=== PATIENT | female | born 1945 | race Caucasian/White ===

== ENCOUNTER 2018-04-17 17:56 | Emergency (ER) | payer MEDICARE, BC ==
[~2018-04-17] VITALS: Ht 162.6 cm; Wt 86.4 kg
[2018-04-17 18:07] VITALS: Ht 162.6 cm; Wt 86.4 kg
[2018-04-17] MEDS ORDERED: PRINIVIL20 MG PO (18:09)
[2018-04-17] MEDS ORDERED: ZOCOR20 MG PO (18:09)
[2018-04-17] MEDS ORDERED: TORADOL10 MG PO (20:28)
[2018-04-17 20:45] VITALS: BP 158/79
== END 2018-04-17 20:46 | disposition home or self-care (01) ==
LOC: D.ER 17:56
DX: N63.21 Unspecified lump in the left breast, upper outer quadrant (principal); I10 Essential (primary) hypertension

== ENCOUNTER 2018-04-22 08:00 | Outpatient (CLI) | payer MEDICARE, BC ==
[2018-04-17 18:07] VITALS: BMI 32.7
[~2018-04-22 08:00] MED LIST: PRINIVIL20 MG PO; TORADOL10 MG PO; ZOCOR20 MG PO
== END 2018-04-22 09:00 | disposition home or self-care (01) ==
LOC: D.MAMMO 08:00
DX: N63.22 Unspecified lump in the left breast, upper inner quadrant (principal)

== ENCOUNTER → 2018-05-12 08:19 | Outpatient (CLI) | payer MEDICARE, BC ==
[2018-04-17 18:07] VITALS: BMI 32.7
== END | disposition home or self-care (01) ==
LOC: D.US 08:19
DX: N63.22 Unspecified lump in the left breast, upper inner quadrant (principal)

== ENCOUNTER 2018-06-03 09:00 | Day surgery (SDC) | payer MEDICARE, BC ==
[2018-06-02 15:24] LABS: BASOPHILS 0.6 % (0-2); EOSINOPHILS 2.9 % (0-7); HEMATOCRIT 44.9 % (36.0-48.0); HEMOGLOBIN 14.7 g/dL (12-16); IMMATURE GRANULOCYTES 0.3 % (0-5); LYMPHOCYTES 19.2 % (15-50); MCH 31.1 pg (26.0-34.0); MCHC 32.7 g/dL (31.0-37.0); MCV 94.9 fL (80.0-100.0); MEAN PLATELET VOLUME 11.6 fL (7.4-10.4); MONOCYTES 7.2 % (2-11); NEUTROPHILS 69.8 % (40-80); PLATELET COUNT 188 10x3/uL (130-400); RBC 4.73 10x6/uL (4.00-5.40); RDW 12.8 % (11.5-14.5); WBC 9.6 10x3/uL (4.8-10.8)
[2018-06-02 15:45] LABS: ANION GAP 14.5 mmol/L (8-16); CALCIUM 9.5 mg/dL (8.5-10.1); CARBON DIOXIDE 29.1 mmol/L (21.0-32.0); CREATININE - SERUM 0.9 mg/dL (0.6-1.3); POTASSIUM - SERUM 4.6 mmol/L (3.5-5.1)
[~2018-06-03] VITALS: Ht 162.6 cm; Wt 89.4 kg
[2018-06-03 09:36] VITALS: BP 155/77; Ht 162.6 cm; Wt 89.4 kg
[2018-06-03 09:57] LABS: APTT 42.8 SECONDS (22.8-39.4); INR 0.99 (0.85-1.17); PROTIME 12.6 SECONDS (11.6-15.0)
[2018-06-03] MEDS ORDERED: HYDROCODON-ACE1 EA10 PO (13:28)
--- NOTE | 2018-06-03 14:41 | NUR ---
1415-RECD FROM [facility].
--- NOTE | 2018-06-03 15:24 | NUR ---
1515 [facility] 2L TURNED OFF
--- NOTE | 2018-06-03 15:24 | NUR ---
1515 DRESSING DRY AND INTACT
--- NOTE | 2018-06-03 16:30 | NUR ---
PATIENT FEELS DIZZY WHEN STANDING, CONTINUING TO SIP ON FLUIDS AND MONITOR SYMPTOMS
--- NOTE | 2018-06-03 17:15 | NUR ---
PATIENT STANDS AND STATES FEELS LESS DIZZY, FEELS STEADY, PATIENT AMBULATES WITHOUT ASSISTANCE TO BATHROOM AND ATTEMPTS TO VOID IN TOILET. NO URINE PRODUCED, PATIENT RETURNED TO BED
--- NOTE | 2018-06-03 19:15 | NUR ---
PATIENT CONTINUES TO BE UNABLE TO VOID. BLADDER SCAN PERFORMED, BLADDER SCAN SHOWS 8[address] BLADDER. [address] ED PHELAN
--- NOTE | 2018-06-03 19:45 | NUR ---
DR WARD RETURNS CALL AND ORDERS IN AND OUT CATH AND STATES PATIENT MAY GO HOME IF WISHES AFTER CATH OR MAY STAY THE NIGHT FOR OBSERVATION IN CASE CATHETERIZATION IS NEEDED AGAIN LATER. PATIENT OPTS TO HAVE IN AND OUT CATH AND GO HOME
--- NOTE | 2018-06-03 20:35 | NUR ---
IN AND OUT CATHETERIZATION PERFORMED, APPROX 950 CC CLEAR YELLOW URINE DRAINS, STRAIGHT CATH REMOVED
--- NOTE | 2018-06-03 21:05 | NUR ---
PATIENT DRESSED IN PERSONAL CLOTHING. RIGHT HAND PIV DC'D WITH TIP INTACT. DISCHARGE INSTRUCTIONS REVIEWED WITH PATIENT AND DAUGHTER. PATIENT DISCHARGED HOME VIA WHEELCHAIR TO PRIVATE VEHICLE WITH DAUGHTER
--- NOTE | 2018-07-01 09:41 | OP ---
PATIENT NAME: PRATIBHA RUANO MEDICAL RECORD: [id number] :44 LOCATION:D.OPS ADMISSION DATE: SURGEON: STEVE WARD MD DATE OF OPERATION: 06/03/2018 PREOPERATIVE DIAGNOSES: 1. Left breast cancer. 2. Hypertension. 3. Hypercholesterolemia. POSTOPERATIVE DIAGNOSES: 1. Left breast cancer. 2. Hypertension. 3. Hypercholesterolemia. PROCEDURE: Left lumpectomy with left axillary sentinel lymph node biopsy. SURGEON: Steve Ward MD REPORT OF PROCEDURE: Preoperatively, the patient underwent lymphoscintigraphy. The patient was then taken to the operating room and the left breast and axilla were prepped and draped in sterile fashion. The patient had a palpable mass on the left medial aspect of the breast at the 9 o'clock position. An ovoid incision was made overlying this because it looked as if it was tethering down the skin in this area. This oval looked skin was removed and a core of tissue around the mass was excised. This was completed down to the pectoral fascia. As we approached the mass, the mass appeared to be adherent to the pectoral fascia, so a small area of pectoral muscle was removed with the tissue. We were able to get through the tissue and grossly it appeared that the specimen was clear. The specimen was marked and sent to radiology, where they confirmed the mass was present in the specimen along with the clip from the biopsy. The wound was inspected closely and any bleeding that was found was treated with electrocautery. We irrigated out the wound with sterile water and then reapproximated the subcutaneous tissues with interrupted 3-0 Vicryls. The skin was closed with running subcutaneous 5-0 Monocryl and injected with a total of 5 mL of 1% lidocaine with epinephrine. We approached the left axilla, a transverse incision was made overlying the inferior aspect of the axilla and electrocautery was used to dissect through the subcutaneous tissues and axillary fascia. I bluntly entered the axillary space. A Neoprobe was used to inspect the area. We eventually were able to find 2 lymph nodes with elevated readings. The first lymph node had a reading of 3400 and the second lymph node had a reading of 400. These 2 lymph nodes were excised and sent off for permanent specimen. We inspected the axillary tissue bed and there were no signs of any readings greater than 100 at this point. We irrigated out this wound with sterile water and assured there was no sign of any bleeding. The subcutaneous tissues were reapproximated with interrupted 3-0 Vicryl and the skin was closed with running subcutaneous 5-0 Monocryl. A 5 mL of 0.25% Marcaine with epinephrine was infused into the surrounding tissues and the 2 wounds were dressed appropriately. COMPLICATIONS: None. CONDITION: Stable. ANESTHESIA: General endotracheal and local. OPERATIVE REPORT [id number] PRATIBHA RUANO BLOOD LOSS: 30 mL. TRANSINT:[id number] Voice Confirmation ID: [id number] DOCUMENT ID: [id number] STEVE WARD MD at 0941 CC: TIA MONTERO DO [id number] DICTATION DATE: 06/03/18 1333 GENERAL INTERNIST AND PHYSICIAN LEADER: 06/03/18 1453 [facility] 06/03/[address] [id number]
== END 2018-06-03 21:05 | disposition home or self-care (01) ==
LOC: D.OPS 09:00
PROVIDERS: Anesthesiology; Surgery
DX: C50.212 Malignant neoplasm of upper-inner quadrant of left female breast (principal); E78.2 Mixed hyperlipidemia; I10 Essential (primary) hypertension; Z87.891 Personal history of nicotine dependence; Z88.7 Allergy status to serum and vaccine; Z79.82 Long term (current) use of aspirin; Z79.899 Other long term (current) drug therapy; Z01.812 Encounter for preprocedural laboratory examination

== ENCOUNTER 2018-07-16 09:00 | Day surgery (SDC) | payer MEDICARE, BC ==
[~2018-07-16] VITALS: Ht 162.6 cm; Wt 91.2 kg
--- NOTE | ~2018-07-16 | OP ---
PATIENT NAME: PRATIBHA RUANO MEDICAL RECORD: [id number] :44 LOCATION:D.OPS ADMISSION DATE: SURGEON: STEVE WARD MD DATE OF OPERATION: 07/16/2018 PREOPERATIVE DIAGNOSES: 1. Left breast invasive ductal carcinoma. 2. Hypertension. 3. Hyperlipidemia. POSTOPERATIVE DIAGNOSES: 1. Left breast invasive ductal carcinoma. 2. Hypertension. 3. Hyperlipidemia. PROCEDURE: Left subclavian vein PowerPort placement. SURGEON: Steve Ward MD REPORT OF PROCEDURE: The patient's left chest was prepped and draped in standard sterile fashion. A needle was used to cannulate the left subclavian vein and a guidewire was advanced with ease. Fluoro was used to note that the wire was in good position in the venous system. A skin incision was made on the left superior lateral chest and a subcutaneous pouch was made over the pectoral fascia. The catheter was tunneled between this pouch and the wire exit site. The catheter was then sutured to the pectoral fascia using 4-0 Prolenes times 2. The catheter was cut with a beveled tip. The dilator trocar device was then placed over the wire and the wire and dilator were removed. The catheter tip was advanced through the trocar with ease. The trocar was then removed. Fluoro was used to note that the catheter tip resting in good position at the right atrial superior vena caval junction. The catheter aspirated nonpulsatile dark blood and flushed easily with heparinized saline. The subcutaneous tissues were reapproximated with interrupted 3-0 Vicryl and the skin was closed with running subcutaneous 5-0 Monocryl. COMPLICATIONS: None. CONDITION: Stable. ANESTHESIA: General endotracheal. BLOOD LOSS: Minimal. TRANSINT:[id number] Voice Confirmation ID: [id number] DOCUMENT ID: [id number] STEVE WARD MD CC: [id number] DICTATION DATE: 07/29/18 1522 RETENTION REPRESENTATIVE: 07/29/18 1610 [facility] 07/16/18 [id number] [place] [address]
[~2018-07-16 09:00] MED LIST changes: +HYDROCODON-ACE1 EA10 PO
[2018-07-16 09:25] LABS: BASOPHILS 0.4 % (0-2); EOSINOPHILS 1.3 % (0-7); HEMOGLOBIN 14.5 g/dL (12-16); IMMATURE GRANULOCYTES 0.4 % (0-5); LYMPHOCYTES 15.5 % (15-50); MCH 30.9 pg (26.0-34.0); MCV 93.8 fL (80.0-100.0); MEAN PLATELET VOLUME 11.1 fL (7.4-10.4); MONOCYTES 2.5 % (2-11); NEUTROPHILS 79.9 % (40-80); PLATELET COUNT 190 10x3/uL (130-400); RBC 4.69 10x6/uL (4.00-5.40); WBC 7.5 10x3/uL (4.8-10.8)
[2018-07-16 09:34] LABS: ANION GAP 10.1 mmol/L (8-16); CALCIUM 9.2 mg/dL (8.5-10.1); CARBON DIOXIDE 27.4 mmol/L (21.0-32.0); CREATININE - SERUM 0.8 mg/dL (0.6-1.3); POTASSIUM - SERUM 4.5 mmol/L (3.5-5.1)
[2018-07-16 09:36] LABS: APTT 34.6 SECONDS (22.8-39.4); INR 0.98 (0.85-1.17); PROTIME 12.5 SECONDS (11.6-15.0)
[2018-07-16] MEDS ORDERED: TAXOTERE IV (10:54)
[2018-07-16 11:03] VITALS: Ht 162.6 cm; Wt 91.2 kg
[2018-07-16] MEDS ORDERED: HYDROCODON-ACE1 EA10 PO (12:22)
== END 2018-07-16 14:25 | disposition home or self-care (01) ==
LOC: D.OPS 09:00 → D.PAN 10:30 → D.OPS 10:30
PROVIDERS: Anesthesiology; ATTEND Surgery
DX: C50.912 Malignant neoplasm of unspecified site of left female breast (principal); I10 Essential (primary) hypertension; E78.5 Hyperlipidemia, unspecified

== ENCOUNTER → 2019-10-07 19:00 | Outpatient (CLI) | payer OTHER, BC ==
[2018-07-16 11:03] VITALS: BMI 34.5
[~2019-10-07 19:00] MED LIST changes: +TAXOTERE IV
== END | disposition home or self-care (01) ==
LOC: D.MAMMO 10:00
PROVIDERS: ATTEND Internal Medicine Hematology & Oncology
DX: C50.212 Malignant neoplasm of upper-inner quadrant of left female breast (principal); Z51.11 Encounter for antineoplastic chemotherapy

== ENCOUNTER 2020-10-08 09:30 | Outpatient (CLI) | payer OTHER, BC ==
[2018-07-16 11:03] VITALS: BMI 34.5
== END 2020-10-08 23:59 | disposition home or self-care (01) ==
LOC: D.MAMMO 09:30
PROVIDERS: ATTEND Internal Medicine Hematology & Oncology
DX: C50.212 Malignant neoplasm of upper-inner quadrant of left female breast (principal); Z51.11 Encounter for antineoplastic chemotherapy; M54.5 Low back pain; Z78.0 Asymptomatic menopausal state